=== PATIENT | female | born 1995 | race Caucasian/White ===

== ENCOUNTER → 2017-04-19 | Outpatient (CLI) | payer BC | END | disposition home or self-care (01) | LOC: C.LAB 10:17 | PROVIDERS: ATTEND Nutritionist | DX: R53.83 Other fatigue (principal) ==

== ENCOUNTER → 2017-05-27 | Outpatient (CLI) | payer BC ==
[~2017-05-27] MED LIST: ADAP0.1C5 TOP
== END | disposition home or self-care (01) ==
LOC: C.LAB 09:38
PROVIDERS: ATTEND Obstetrics & Gynecology
DX: Z32.01 Encounter for pregnancy test, result positive (principal)

== ENCOUNTER 2017-07-28 01:40 | Emergency (ER) | payer BC, OTHER ==
[~2017-07-28] VITALS: Ht 157.5 cm; Wt 47.0 kg
[2017-07-28 01:44] VITALS: BP 121/77; PULSE 103; TEMP 37; O2SAT 98; Ht 157.5 cm; Wt 47.0 kg
[2017-07-28] MEDS ORDERED: ADAP0.1C5 TOP (02:02)
[2017-07-28] MEDS ORDERED: IBUPROFEN 600 MG TAB ONE (02:03)
[2017-07-28 04:35] LABS: BASO % 0.1 %; BASO ABS # 0.01 K/uL (0-0.2); EOS % 0.6 %; EOS ABS # 0.06 K/uL (0-0.5); HEMATOCRIT 40.4 % (37-47); HEMOGLOBIN 14.1 g/dL (12.0-16.0); IG# 0.02 K/uL (0.00-0.02); LYMPH % 44.6 %; LYMPH ABS # 4.59 K/uL (1.2-3.4); MEAN CELL VOLUME 86.7 fL (80-100); MEAN CORPUSCULAR HEMOGLOBIN 30.3 pg (25-34); MEAN CORPUSCULAR HGB CONC 34.9 g/dl (32-36); MEAN PLATELET VOLUME 10.6 fL (7.4-10.4); MONO % 5.2 %; MONO ABS # 0.53 K/uL (0.11-0.59); NEUT % 49.3 %; NEUT ABS # 5.07 K/uL (1.4-6.5); PLATELET COUNT 222 K/uL (130-400); RED CELL DISTRIBUTION WIDTH CV 12.7 % (11.5-14.5); RED CELL DISTRIBUTION WIDTH SD 40.5 fL (36.4-46.3); WHITE BLOOD COUNT 10.28 K/uL (4.8-10.8)
--- NOTE | 2017-07-28 05:10 | EMERGENCY ROOM VISIT NOTE ---
History Report prepared by Farshad: Richardson Joseph Under the Supervision of: Dr. Heide Alarcon D.O. First contact with patient: 01:48 Chief Complaint: PELVIC PAIN Stated Complaint: PELVIC PAIN History of Present Illness The patient is a 22 year old female who presents to the Emergency Room with complaints of worsening left sided abdominal pain since July 06 when she had an IUD placed. The patient states that the pain has been intermittent, and it has been getting worse, and she states that the pain is extreme when it comes and feels like a jabbing and cramping pain. The patient additionally notes that the pain is occasionally on the right side though less frequent. She notes that she has been having brown vaginal discharge. The patient states that she had an elective on May 20, and she took Methotrexate. She states that that it was her first , and her first period afterwards was July 01 and ended July 06 when the IUD was placed. She states that she has been sexually active, and she had sex on July 13. The patient states that she is having some nausea with the pain. She denies any cough, fever, chills, and vomiting. The patient states that she called the advice line earlier in the day, and they told her to come to the ED. She states that she has not slept tonight due to the pain, and she has not taken anything for the pain. The patient has a history of ovarian cysts in her teens, though she has never had pain like this in the past. She does not have any concerns for STI. The patient reports that her last bowel movement was this afternoon, and it was normal Source of History: patient Onset: July 06 Position: abdomen Symptom Intensity: extreme Quality: cramping, other (jabbing) Timing: intermittent, worsening Associated Symptoms: + nausea Note: Associated symptoms: Brown Vaginal discharge. Review of Systems See HPI for pertinent positives & negatives. A total of 10 systems reviewed and were otherwise negative. Past Medical & Surgical Medical Problems: (1) History of (2) History of ovarian cyst Social History Problems: (1) IUD contraception Family History Patient reports no known family medical history. Social History Smoking Status: Never Smoker Marital Status: single Housing Status: lives with roommate Occupation Status: [employer] student Current/Historical Medications Scheduled Adapalene (Differin), 1 APPLN TOP Allergies Coded Allergies: No Known Allergies (Unverified , 07/28/17) Physical Exam Vital Signs Date Time Temp Pulse Resp B/P (MAP) Pulse Ox O2 Delivery O2 Flow Rate FiO2 07/28/17 01:44 37.0 103 18 121/77 98 Room Air Physical Exam HEENT: Head - normocephalic and atraumatic Pupils are equal, round, and reactive to light. Extraocular eye muscles are intact, and sclera are anicteric. Nose - moist nasal mucosa without discharge. Mouth - moist buccal mucosa. Oropharynx is nonerythematous and there is no tonsillar exudate or edema noted. Neck: Supple; no JVD, nuchal rigidity, cervical lymphadenopathy. Heart: Regular rate and rhythm. There is a normal S1 and S2 with no murmurs, clicks, or gallops appreciated. Lungs: Clear to auscultation bilaterally with no wheezes, rales, or rhonchi. Abdomen: Left lower quadrant pain and left flank pain. Soft, nondistended, with good bowel sounds. There are no palpable pulsatile masses or hepatosplenomegaly. There is no guarding, rigidity, or rebound noted. Extremities: No evidence of cyanosis, clubbing, or edema. There are easily palpable peripheral pulses. Skin: warm and dry with good turgor and no rashes. Medical Decision & Procedures ER Provider Diagnostic Interpretation: X-ray results as stated below per interpretation by me: Abdominal X-ray: IUD in place, no free air, moderate colonic fecal retention. Radiology results as stated below per my review and the radiologist's interpretation: US PELVIC/ENDOVAG: IUD appropriately positioned in the endometrial canal. Small volume simple appearing free fluid in the pelvic cul-de-sac and right adnexa. Probable corpus luteal cyst in the right ovary. Consider follow-up in 4-6 weeks to ensure resolution. No current evidence of ovarian torsion. Radiologist: Boris Navarro MD Laboratory Results 07/28/17 02:05 Red Blood Count 4.66, Mean Corpuscular Volume 86.7, Mean Corpuscular Hemoglobin 30.3, Mean Corpuscular Hemoglobin Concent 34.9, Mean Platelet Volume 10.6, Neutrophils (%) (Auto) 49.3, Lymphocytes (%) (Auto) 44.6, Monocytes (%) (Auto) 5.2, Eosinophils (%) (Auto) 0.6, Basophils (%) (Auto) 0.1, Neutrophils # (Auto) 5.07, Lymphocytes # (Auto) 4.59, Monocytes # (Auto) 0.53, Eosinophils # (Auto) 0.06, Basophils # (Auto) 0.01 Test 07/28/17 02:05 White Blood Count 10.28 K/uL (4.8-10.8) Red Blood Count 4.66 M/uL (4.2-5.4) Hemoglobin 14.1 g/dL (12.0-16.0) Hematocrit 40.4 % (37-47) Mean Corpuscular Volume 86.7 fL (80-100) Mean Corpuscular Hemoglobin 30.3 pg (25-34) Mean Corpuscular Hemoglobin Concent 34.9 g/dl (32-36) Platelet Count 222 K/uL (130-400) Mean Platelet Volume 10.6 fL (7.4-10.4) Neutrophils (%) (Auto) 49.3 % Lymphocytes (%) (Auto) 44.6 % Monocytes (%) (Auto) 5.2 % Eosinophils (%) (Auto) 0.6 % Basophils (%) (Auto) 0.1 % Neutrophils # (Auto) 5.07 K/uL (1.4-6.5) Lymphocytes # (Auto) 4.59 K/uL (1.2-3.4) Monocytes # (Auto) 0.53 K/uL (0.11-0.59) Eosinophils # (Auto) 0.06 K/uL (0-0.5) Basophils # (Auto) 0.01 K/uL (0-0.2) RDW Standard Deviation 40.5 fL (36.4-46.3) RDW Coefficient of Variation 12.7 % (11.5-14.5) Immature Granulocyte % (Auto) 0.2 % Immature Granulocyte # (Auto) 0.02 K/uL (0.00-0.02) Human Chorionic Gonadotropin, Quant < 1 mIU/mL Laboratory results per my review. Procedure Motrin PO. ED Course 0148: Past medical records reviewed. The patient was evaluated in room B7. A complete history and physical exam was performed. Labs were drawn as above. 0203: Motrin 600mg PO. The patient went for an ultrasound of the pelvis as described above. The patient went for an obstruction series which showed a moderate amount of stool but no signs of obstruction. 0427: Upon reevaluation, the patient is feeling much better with the Motrin. She declined a pelvic exam with STI check. I discussed findings and results with her. She verbalized agreement of the treatment plan. She was discharged home. Medical Decision The patient is a 22 year old female who presents to the ED with left sided abdominal pain. Differential diagnosis includes ovarian torsion, ruptured ovarian cyst, STI, ectopic , PID, constipation, UTI, pyelonephritis, IUD infection Lab results show: Beta HCG less than 1, no leukocytosis, and stable H&H This is a 22-year-old female patient who presents to the emergency department with left-sided abdominal pain. Ultrasound was performed and showed no evidence of an ovarian cyst or ovarian torsion. IUD appeared to be in good position. Obstruction series showed moderate amount of stool in the abdomen. I felt the patient's pain could be secondary to constipation. She was encouraged to take plenty of clear liquids and use a stool softener. As for the patient's findings on ultrasound, there was a right-sided ovary cyst. I have asked her to follow-up in 6 weeks with regards to that. 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 The patient denies being concerned about STI. Medication Reconcilliation Current Medication List: was personally reviewed by me Blood Pressure Screening Patient's blood pressure: Normal blood pressure Impression Primary Impression: Pelvic pain Additional Impression: Constipation Scribe Attestation The scribe's documentation has been prepared under my direction and personally reviewed by me in its entirety. I confirm that the note above accurately reflects all work, treatment, procedures, and medical decision making performed by me. Departure Information Dispostion Home / Self-Care Referrals No Doctor, Assigned (PCP) Forms HOME CARE DOCUMENTATION FORM, IMPORTANT VISIT INFORMATION, WORK / SCHOOL INSTRUCTIONS Patient Instructions My [facility] Problem Qualifiers Additional Impression: Constipation Constipation type: unspecified constipation type Qualified Codes: K59.00 - Constipation, unspecified
--- NOTE | 2017-07-28 06:41 | DIAGNOSTIC IMAGING REPORT ---
ABDOMEN 2VIEW W/PA CHEST RTN HISTORY: 22 years-old Female LOWER ABD PAIN acute lower abdominal pain COMPARISON: None available TECHNIQUE: PA view of the chest with standing upright and supine views of the abdomen FINDINGS: Cardiomediastinal and hilar silhouettes are within normal limits. There is no pneumothorax, pleural effusion, focal airspace consolidation or overt pulmonary edema. The bones of the chest appear grossly intact. Mild levoscoliosis of the upper thoracic spine. No pneumoperitoneum on the upright projection. Bowel gas pattern is nonobstructive. No urolith identified. Probable phleboliths of the pelvis. Intrauterine device of the mid pelvis. IMPRESSION: 1. No acute process of the chest. 2. Nonobstructive bowel gas pattern without pneumoperitoneum. The above report was generated using voice recognition software. It may contain grammatical, syntax or spelling errors. Electronically signed by: Denver Lira M.D. 07/28/2017 6:40 AM Dictated Date/Time: 07/28/2017 6:38 AM
--- NOTE | 2017-07-28 07:16 | DIAGNOSTIC IMAGING REPORT ---
PELVIC COMPLETE NON OB, TRANSVAG-FEMALE PELVIS CLINICAL HISTORY: 22 years-old Female presenting with EVAL FOR OVARIAN CYST/TORSION, pelvic pain, IUD placed 07/06/2017, . TECHNIQUE: Real-time grayscale and color and spectral Doppler ultrasound imaging of the pelvis was performed first using a transabdominal probe and subsequently transvaginal for better characterization. COMPARISON: None. FINDINGS: Uterus: Intrauterine device in the endometrial canal. Anteverted anteflexed. The uterus measures 6.9 x 3.1 x 4.6 cm. Endometrial stripe measures 5 mm in thickness. Endometrium normal-appearing. Cervix contains free fluid in the endocervical canal. Nabothian cysts noted. Right adnexa: Right ovary contains a dominant. Right ovary measures 3.3 x 1.5 x 3.8 cm. Normal color Doppler flow and arterial and venous waveforms within the ovarian parenchyma. Left adnexa: Left ovary normal. Left ovary measures 2.5 x 2.0 x 1.9 cm. Normal color Doppler flow and arterial and venous waveforms within the ovarian parenchyma. Other: Trace free fluid, likely physiologic. IMPRESSION: 1. Appropriately positioned intrauterine device. 2. Likely physiologic trace free fluid in the pelvis. 3. Dominant follicle in the right ovary, which is benign and requires no follow-up. 4. No evidence of ovarian torsion. Electronically signed by: Endy Lora M.D. 07/28/2017 7:14 AM Dictated Date/Time: 07/28/2017 6:50 AM
== END 2017-07-28 04:50 | disposition home or self-care (01) ==
LOC: C.EDB 01:41
DX: R10.2 Pelvic and perineal pain (principal); K59.00 Constipation, unspecified

== ENCOUNTER → 2017-09-14 | Outpatient (CLI) | payer OTHER | LOC: C.PAPS 14:40 | PROVIDERS: ATTEND Physician Assistant Medical | DX: Z12.4 Encounter for screening for malignant neoplasm of cervix (principal) ==